=== PATIENT | female | born 1985 | race Two or more races ===

== ENCOUNTER 2020-03-24 16:00 | Inpatient (IN) | payer OTHER ==
--- OUTSIDE RECORDS SUMMARY | 2020-03-24 17:29 | XMS ---
:1985 Author Organization [facility] Support Name Relationship Address Phone [facility] Unavailable [address] [phone] [place] [address] UE Unavailable Unavailable Unavailable CASSY RAMIREZ [address] [place] [address] Re-disclosure Warning The records that you are about to access may contain information from federally- assisted alcohol or drug abuse programs. If such information is present, then the following federally mandated warning applies: This information has been disclosed to you from records protected by federal confidentiality rules (42 CFR part 2). The federal rules prohibit you from making any further disclosure of this information unless further disclosure is expressly permitted by the written consent of the person to whom it pertains or as otherwise permitted by 42 CFR part 2. A general authorization for the release of medical or other information is NOT sufficient for this purpose. The Federal rules restrict any use of the information to criminally investigate or prosecute any alcohol or drug abuse patient.The records that you are about to access may contain highly sensitive health information, the redisclosure of which is protected by Article 27-F of the [facility] Public Health law. If you continue you may haveaccess to information: Regarding HIV / AIDS; Provided by facilities licensed or operated by the [facility] Office of Mental Health; or Provided by the [facility] Office for People With Developmental Disabilities. If such information is present, then the following [facility] mandated warning applies: This information has been disclosed to you from confidential records which are protected by state law. State law prohibits you from making any further disclosure of this information without the specific written consent of the person to whom it pertains, or as otherwise permitted by law. Any unauthorized further disclosure in violation of state law may result in a fine or alf sentence or both. A general authorization for the release of medical or other information is NOT sufficient authorization for further disclosure. Insurance Providers Payer name Policy type / Policy ID Covered Covered alliance party's Policy Plan Coverage type alliance party ID relationship to [place] Information [place]
[2020-03-24 17:41] VITALS: BMI 32.8
[2020-03-24 19:11] LABS: BASO % 0.3 % (0-2.0); EOS % 0.9 % (0-4.5); HEMOGLOBIN 11.6 GM/dL (10.7-15.3); LYMPH % 10.4 % (8-40); MCH 28.8 pg (25.7-33.7); MCHC 33.1 g/dl (32.0-36.0); MEAN PLT VOLUME 10.5 fl (7.5-11.1); MONO % 7.2 % (3.8-10.2); NEUT % 81.2 % (42.8-82.8); PLATELET COUNT 191 K/MM3 (134-434); RBC 4.02 M/mm3 (3.60-5.2); RDW 14.8 % (11.6-15.6); WHITE BLOOD COUNT 11.3 K/mm3 (4.0-10.0)
[2020-03-24 19:17] LABS: INR 1.03 (0.83-1.09); PROTHROMBIN TIME (PATIENT) 12.4 SEC (9.7-13.0)
[2020-03-24 19:20] LABS: ACTIVATED PTT 26.9 SECONDS (25.2-36.5)
[2020-03-24 19:41] LABS: POTASSIUM 3.9 mmol/L (3.5-5.1)
[2020-03-24] MEDS ORDERED: PROMETHAZINE HCL 25 MG/1 ML VIAL IVPUSH ONE (19:42)
[2020-03-24] MEDS ORDERED: BUTORPHANOL TARTRATE 2 MG/ML VIAL IVPB PRN (19:42)
[2020-03-24 19:45] LABS: CALCIUM 9.3 mg/dL (8.5-10.1)
[2020-03-24 19:47] LABS: BLOOD UREA NITROGEN 14.2 mg/dL (7-18)
[2020-03-24 19:49] LABS: CREATININE 0.5 mg/dL (0.55-1.3)
[2020-03-24] MEDS ORDERED: DINOPROSTONE 10 MG VAGINAL SUPPOSITORY VG ONE (19:58)
--- NOTE | 2020-03-24 20:16 | HP ---
Past Medical History - Primary Care Physician PCP:: Chelsie Ware - Admission Chief Complaint: Gestational DM- diet. obesity. Size> dates. 39 week History of Present Illness: L 35yo EDC 03/30/2020 ega 39 week admitted for LGA size> dates as per MFM, gestational DM- diet and Hx of macrosomia x1 8 lbs 15 oz History Source: Patient Limitations to Obtaining History: No Limitations - Past Medical History ...: 2 ...Para: 1 ...Term: 1 ...: 0 ...Spon : 0 ...Induced : 0 ...Living Children: 1 ...Multiple Gestation: 0 ...LMP: 06/24/19 ... Weeks Gestation by Dates: 39.1 ...EDC by Dates: 03/30/19 - Past Surgical History Past Surgical History: Yes: None Hx Myomectomy: No Hx Transabdominal Cerclage: No - Smoking History Smoking history: Never smoked Have you smoked in the past 12 months: No - Alcohol/Substance Use Hx Alcohol Use: No History of Substance Use: reports: None - Social History History of Recent Travel: No Home Medications - Allergies Allergies/Adverse Reactions: Allergies Allergy/AdvReac Type Severity Reaction Status Date / Time No Known Allergies Allergy Verified 03/24/20 17:28 - Home Medications Home Medications: Ambulatory Orders Pnv No.95/Ferrous Fum/Folic AC [ Formula] 1 each PO DAILY 03/24/20 Review of Systems - Review of Systems Constitutional: reports: No Symptoms Eyes: reports: No Symptoms HENT: reports: No Symptoms Neck: reports: No Symptoms Cardiovascular: reports: No Symptoms Respiratory: reports: No Symptoms Gastrointestinal: reports: No Symptoms Genitourinary: reports: No Symptoms Breasts: reports: No Symptoms Reported Musculoskeletal: reports: No Symptoms Integumentary: reports: No Symptoms Neurological: reports: No Symptoms Endocrine: reports: No Symptoms Hematology/Lymphatic: reports: No Symptoms Psychiatric: reports: No Symptoms Physical Exam - Maternity Vital Signs: Vital Signs Temperature 98.1 F 03/24/20 17:29 Pulse Rate 83 03/24/20 17:29 Respiratory Rate 18 03/24/20 17:29 Blood Pressure 127/74 03/24/20 17:29 O2 Sat by Pulse Oximetry (%) 99 03/24/20 17:29 Constitutional: Yes: Well Nourished, No Distress, Obese - Abdominal Exam/OB Fundal Height: 39 Number of Fetuses: Single Presentation: Vertex Contractions: No Monitor Mode: External Heart Rate Location: [facility] Category: I - Vaginal Exam/OB Amniotic Membrane Status: Intact Presentation: Vertex/Position - Physical Exam Musculoskeletal: Yes: WNL Extremities: Yes: WNL Edema: No Psychiatric: Yes: WNL, Alert, Oriented - Labs Lab Results: CBC, BMP 03/24/20 18:15 03/24/20 18:15 Hemorrhage Risk Assessment - Risk Factors High Risk Factors: Yes: None Risk Score: 0 Risk Level: Low Risk Problem List - Problems (1) 39 weeks gestation of Problems reviewed: Yes Code(s): Z3A.39 - 39 WEEKS GESTATION OF (2) Size of fetus inconsistent with dates in third trimester Problems reviewed: Yes Code(s): O26.843 - UTERINE SIZE-DATE DISCREPANCY, THIRD TRIMESTER (3) Obesity (BMI 30-39.9) Problems reviewed: Yes Code(s): E66.9 - OBESITY, UNSPECIFIED (4) Gestational diabetes mellitus, diet-controlled Problems reviewed: Yes Code(s): O24.410 - GESTATIONAL DIABETES MELLITUS IN , DIET CONTROLLED Qualifiers: Trimester: third trimester Qualified Code(s): O24.410 - Gestational diabetes mellitus in , diet controlled Assessment/Plan Gestational DM - diet 39 week size>dates LGA macrosomia Cat 1 Covid neg Plan Admit Cervidil
--- NOTE | 2020-03-24 22:22 | PN ---
Ante-Partal Exam - Subjective Subjective: Term, for induction Vital Signs: Vital Signs Temperature 98.1 F 03/24/20 17:29 Pulse Rate 83 03/24/20 17:29 Respiratory Rate 18 03/24/20 17:29 Blood Pressure 127/74 03/24/20 17:29 O2 Sat by Pulse Oximetry (%) 99 03/24/20 17:29 Bleeding: No Headache: No Visual changes: No Right upper quadrant pain: No - Contractions Contractions: No - Exam during Labor Heart Rate: 145 Variability: Moderate Heart Rate Location: [facility] Category: I Dilatation (cm): 0 Effacement (%): 50 Amniotic Membrane Status: Intact Meconium Staining: Light (Cervidil placed.) Station: -2 - Assessment/Plan Assessment/Plan: for induction. Impending macrosomia. NST reactive. Cervidil placed.
[2020-03-25] MEDS: ELECTROLYTE-148 SOLN 1,000 ML IV SCH (02:40)
[2020-03-25] MEDS ORDERED: BUTORPHANOL TARTRATE 2 MG/ML VIAL ONE (03:40)
[2020-03-25] MEDS ORDERED: PROMETHAZINE HCL 25 MG/1 ML VIAL ONE (03:40)
[2020-03-25] MEDS ORDERED: PCA PUMP NR ONE (05:47)
[2020-03-25] MEDS ORDERED: FENTANYL/BUPIVACAINE/NS/PF - PCEA - 50 ML DISP.SYRIN EP ONE (05:47)
[2020-03-25] MEDS ORDERED: BUPIVACAINE HCL/PF 0.25% (2.5MG/ML) 10 ML VIAL ONE (05:54)
[2020-03-25] MEDS ORDERED: NALOXONE HCL 0.4 MG/ML VIAL IVPUSH PRN (06:24)
[2020-03-25] MEDS ORDERED: FENTANYL/BUPIVACAINE/NS/PF - PCEA - 50 ML DISP.SYRIN EP SCH (06:30)
[2020-03-25] MEDS ORDERED: AMPICILLIN SODIUM 2 GM VIAL ONE (06:48)
[2020-03-25] MEDS ORDERED: AMPICILLIN - 2 GM in SODIUM CHLORIDE 100 ML IVPB ONE (07:00)
[2020-03-25] MEDS ORDERED: OXYTOCIN 20 UNITS in 0.9% NS 20 UNIT/1,000 ML INFUS.BAG IV ONE ×2 (07:11→09:03)
[2020-03-25] MEDS ORDERED: METHYLERGONOVINE MALEATE 0.2 MG/1 ML AMP IM PRN (07:49)
[2020-03-25] MEDS ORDERED: BISACODYL 10 MG SUPP.RECT PR PRN (07:49)
[2020-03-25] MEDS ORDERED: BENZOCAINE 20% 57 GM BOTTLE TP PRN (07:49)
[2020-03-25] MEDS ORDERED: WITCH HAZEL 50% (TUCKS) 40 PAD/JAR PAD TP PRN (07:49)
[2020-03-25] MEDS ORDERED: BENZOCAINE 28 GM HEMORRHOIDAL OINTMENT PR PRN (07:49)
--- NOTE | 2020-03-25 07:49 | PN ---
Delivery - Delivery Vaginal Delivery: No Problems (2nd degree laceration repaired with 2-0 chromic) Type of Anesthesia: Epidural Episiotomy/Laceration: 2nd degree EBL (cc): 200 Delivery, Single - Stages of Labor Placenta: Yes: Spontaneous - Condition of Infant Binder Coverstitch/Aitchbone Breaker Present: No Gender: Female Position: OA - Feeding Plan Initial Plan: Exclusive throughout hospitalization
[2020-03-25] MEDS ORDERED: OXYTOCIN 20 UNITS in 0.9% NS 20 UNIT/1,000 ML INFUS.BAG IV SCH (08:00)
[2020-03-25] MEDS: AMPICILLIN - 1 GM in SODIUM CHLORIDE 100 ML IVPB SCH ×2 (14:04→15:27)
[2020-03-25] MEDS: IBUPROFEN 600 MG TABLET (FP) PO PRN (14:33)
[2020-03-26] MEDS: AMPICILLIN - 1 GM in SODIUM CHLORIDE 100 ML IVPB SCH ×2 (00:32→00:33)
[2020-03-26] MEDS: ELECTROLYTE-148 SOLN 1,000 ML IV SCH (00:33)
[2020-03-26 07:32] LABS: BASO % 0.3 % (0-2.0); EOS % 1.9 % (0-4.5); HEMATOCRIT 27.9 % (32.4-45.2); HEMOGLOBIN 9.2 GM/dL (10.7-15.3); MCH 29.1 pg (25.7-33.7); MCHC 32.8 g/dl (32.0-36.0); MEAN CELL VOLUME 88.6 fl (80-96); MEAN PLT VOLUME 10.8 fl (7.5-11.1); MONO % 7.1 % (3.8-10.2); NEUT % 72.7 % (42.8-82.8); PLATELET COUNT 157 K/MM3 (134-434); RBC 3.15 M/mm3 (3.60-5.2); RDW 14.6 % (11.6-15.6); WHITE BLOOD COUNT 10.2 K/mm3 (4.0-10.0)
--- NOTE | 2020-03-26 08:32 | PN ---
Post Note - Post Date of Delivery: 03/25/20 Post Day: 1 Vital Signs: Vital Signs - 24 hr 03/25/20 03/25/20 03/25/20 09:00 09:40 14:00 Temperature 98.3 F 98.5 F Pulse Rate 83 85 Respiratory 18 18 Rate Blood Pressure 118/75 127/76 O2 Sat by Pulse 98 98 Oximetry (%) 03/25/20 03/25/20 03/26/20 18:00 22:00 02:00 Temperature 97.8 F 98.2 F 98.3 F Pulse Rate 81 83 81 Respiratory 18 18 18 Rate Blood Pressure 107/69 111/62 134/64 O2 Sat by Pulse Oximetry (%) 03/26/20 06:00 Temperature 97.8 F Pulse Rate 82 Respiratory 18 Rate Blood Pressure 124/86 O2 Sat by Pulse Oximetry (%) Labs: Laboratory Results - last 24 hr 03/26/20 06:57 WBC 10.2 H RBC 3.15 L Hgb 9.2 L Hct 27.9 L D MCV 88.6 MCH 29.1 MCHC 32.8 RDW 14.6 Plt Count 157 MPV 10.8 Absolute Neuts (auto) 7.4 Neutrophils % 72.7 Lymphocytes % 18.0 D Monocytes % 7.1 Eosinophils % 1.9 D Basophils % 0.3 Nucleated RBC % 0 - Subjective Subjective: No Complaints - Objective Afebrile: Yes Breast: Not engorged Abdomen: Soft, Non-tender Uterus: Fundus firm Vagina: Scant lochia Extremities: Non-tender - Assessment/Plan (2) Size of fetus inconsistent with dates in third trimester Assessment: S/P Normal Plan: Routine Care (4) Gestational diabetes mellitus, diet-controlled Assessment: S/P Normal Plan: Routine Care
[2020-03-26] MEDS: IBUPROFEN 600 MG TABLET (FP) PO PRN (09:54)
[2020-03-26] MEDS: ACETAMINOPHEN 325 MG TABLET (FP) PO PRN (09:55)
[2020-03-26] MEDS ORDERED: SENNOSIDES/DOCUSATE COMBO (SENNA PLUS) TABLET (UD) PO SCH (22:00)
--- NOTE | 2020-03-27 06:33 | DS ---
Physical Exam-SAIL FINISHER HAND Vital Signs: Vital Signs Temperature 98.6 F 03/26/20 22:00 Pulse Rate 86 03/26/20 22:00 Respiratory Rate 18 03/26/20 22:00 Blood Pressure 108/38 L 03/26/20 22:00 O2 Sat by Pulse Oximetry (%) 98 03/25/20 09:40 Constitutional: Yes: Well Nourished, No Distress Gastrointestinal: Yes: WNL, Soft ....Post : Yes: Uterus firm, Uterus non-tender Breast(s): Yes: WNL Musculoskeletal: Yes: WNL Extremities: Yes: WNL Neurological: Yes: WNL, Alert, Oriented Labs: CBC, BMP 03/26/20 06:57 03/24/20 18:15 Delivery - Delivery Vaginal Delivery: No Problems (2nd degree laceration repaired with 2-0 chromic), Spontaneous Type of Anesthesia: Epidural Episiotomy/Laceration: 2nd degree EBL (cc): 200 Delivery, Single - Stages of Labor Date 1st Stage Initiatied: 03/25/20 Time 1st Stage Initiated: 02:00 Date 2nd Stage Initiated: 03/25/20 Time 2nd Stage Initiated: 07:18 Date of Delivery: 03/25/20 Time of Delivery: 07:26 Time Placenta Delivered: 07:35 Placenta: Yes: Spontaneous - Condition of Infant Sanforizer/Hyster Machine Operator Present: [place]: Manuel Stanton Infant Gender: Female Weight: 7 lb 15 oz Position: OA Total Hours ROM (Hrs/Mins): 45mins - 1 Minute Total Score: 9 5 Minutes Total Score: 9 - [place] Feeding Plan Initial Plan: Exclusive throughout hospitalization Discharge Summary Problems reviewed: Yes Current Active Problems 39 weeks gestation of (Acute) Gestational diabetes mellitus, diet-controlled (Acute) Obesity (BMI 30-39.9) (Acute) Size of fetus inconsistent with dates in third trimester (Acute) Condition: Good - Instructions Diet, Activity, Other Instructions: Physical activity Resume your normal everyday activity as tolerated no heavy lifting or exercise until seen by your surgeon. You may walk unlimited stephan of and climb stairs. You may resume driving the car when you feel safe and comfortable behind the wheel. No sexual activity as instructed. Wound care If you have a bandage, leave it on, and keep dry for 48-72 hours. After that time discard the outer bandage. If they are tapes on the skin under the out of bandage leave them in place. They will peel off in the next 7 to 10 days. Do Not Peel them off. You may shower the day after surgery. If there are tapes present on the skin, you may shower over them. Diet There are no dietary restrictions. Eat healthy, high-fiber foods. Drink 6 to 8 glasses of liquid each day. This will assist in keeping your bowels are regular. Pain management You may take Tylenol or acetaminophen or Ibuprofen (for example, Motrin, Advil etc.) from my pain prescription medication is ordered should be taken as prescribed for moderate to severe pain. Call MD for any of the following: Severe pain not relieved by medication Fever of 101 or higher Excessive bleeding or drainage on dressing Inability to urinate Referrals: Chelsie Ware MD [Staff Physician] - Disposition: HOME - Home Medications Comprehensive Discharge Medication List: Ambulatory Orders Pnv No.95/Ferrous Fum/Folic AC [ Formula] 1 each PO DAILY 03/24/20 Ibuprofen [Motrin -] 600 mg PO QID #28 tablet 03/25/20
[2020-03-27] MEDS: ACETAMINOPHEN 325 MG TABLET (FP) PO PRN (10:38)
[2020-03-27] MEDS: IBUPROFEN 600 MG TABLET (FP) PO PRN (10:39)
[2020-03-27 12:16] VITALS: BP 121/80; PULSE 83; TEMP 98.3
== END 2020-03-27 13:48 | disposition home or self-care (01) | DRG 807 ==
LOC: JLDR 16:00 → J3W 03-25 09:10
PROVIDERS: ADMIT Obstetrics & Gynecology; ATTEND Obstetrics & Gynecology
PROC: 3E0P7VZ Introduction of Hormone into Female Reproductive, Via Natural or Artificial Opening (ICD-10-PCS; 2020-03-24)
PROC: 10E0XZZ Delivery of Products of Conception, External Approach (ICD-10-PCS; principal; 2020-03-25)
PROC: 0KQM0ZZ Repair Perineum Muscle, Open Approach (ICD-10-PCS; 2020-03-25)
DX: O36.63X0 Maternal care for excessive fetal growth, third trimester, not applicable or unspecified (principal); Z37.0 Single live birth; O70.1 Second degree perineal laceration during delivery; O26.843 Uterine size-date discrepancy, third trimester; O99.214 Obesity complicating childbirth; O24.420 Gestational diabetes mellitus in childbirth, diet controlled; E66.9 Obesity, unspecified; Z3A.39 39 weeks gestation of pregnancy
CPT/HCPCS: 36415; 59409; 80048; 82962; 85025; 85610; 85730; 86780; 86850; 86900; 86901